=== PATIENT | female | born 1970 | race Caucasian/White ===

== ENCOUNTER 2023-11-17 16:20 | Inpatient (IN) | payer OTHER ==
[2023-11-17] MEDS ORDERED: NA CHLORIDE 0.9% 100 ML ONE (16:53)
[2023-11-17] MEDS ORDERED: CEFEPIME 2 GM VIAL ONE (16:53)
[2023-11-17] MEDS ORDERED: NA CHLORIDE 0.9% 2,000 ML ONE (16:53)
[2023-11-17] MEDS ORDERED: NA CHLORIDE 0.9% 250 ML ONE (16:53)
[2023-11-17 17:03] LABS: Absolute Lymphocytes (CBC) 0.5 K/uL (0.7-4.9); Hematocrit 34.5 % (36.0-45.0); MCV 94.3 fL (80-100); MPV 8.5 fL (7.6-11.3); Platelets 293 thou/uL (152-406); RBC Red Blood Cell Count 3.66 M/uL (3.86-4.86)
[2023-11-17 17:15] LABS: Protime INR 1.21
[2023-11-17 17:25] LABS: Bilirubin Total 0.5 mg/dL (0.2-1.0); Protein, Total 6.6 g/dL (6.4-8.2); Troponin High Sensitivity 3.9 pg/mL (<58.9)
[2023-11-17] MEDS ORDERED: Magnesium Sulfate 2gm IVPB 2 G/50 ML BAG IV ONE (17:46)
[2023-11-17 17:57] LABS: Magnesium 2.2 mg/dL (1.6-2.4)
[2023-11-17] MEDS ORDERED: ALBUMIN HUMAN 25% 100 ML IV ONE (17:57)
--- NOTE | 2023-11-17 18:01 | RAD REPORT ---
EXAM DESCRIPTION: CT - Abdomen Pelvis Wo Contrast - 11/17/2023 5:48 pm CLINICAL HISTORY: Abdominal pain COMPARISON: 2019 TECHNIQUE: Computed axial tomography of the abdomen and pelvis was obtained. IV and oral contrast we re not requested. All CT scans are performed using dose optimization technique as appropriate and may include automated exposure control or mA/KV adjustment according to patient size. FINDINGS: The evaluation of solid organs, vessels and bowel is limited secondary to the lack of con trast administration. The liver, spleen, pancreas, adrenals and kidneys appear grossly normal. Moderate wall thickening involves the entire colon and rectum. Pneumatosis intestinalis is not seen. Small amount of ascites Small right pleural effusion with mild right lower lobe atelectasis Small umbilical hernia IMPRESSION: Moderate pancolitis
--- NOTE | 2023-11-17 18:01 | RAD REPORT ---
EXAM DESCRIPTION: [facility] Single View11/17/2023 4:55 pm CLINICAL HISTORY: Breast cancer. Abdominal pain COMPARISON: none FINDINGS: The patient is in a poor degree of inspiration. Central venous catheter in place. Mild right lower lobe atelectasis. The remainder of the lungs appear clear of acute infiltrate. The heart is normal size
[2023-11-17 18:08] LABS: Blood Morphology Comment NOT SEEN (NOT SEEN); Platelet Estimate ADEQ
[2023-11-17 18:15] LABS: Toxic Granulation 2+
[2023-11-17 18:16] LABS: Dohle Bodies PRESENT
--- NOTE | 2023-11-17 18:32 | EDPHYS ---
Physician Documentation [facility] Name: Kirit Tim Age: 53 yrs Sex: Female : 1970 Arrival Date: 11/17/2023 Time: 16:20 Bed IW9 Private MD: Guillermo Carbajal ED Physician Ky Marino HPI: 11/17 16:49 This 53 yrs old Female presents to ER via Wheelchair with complaints of Urinary Problem.rt 16:49 Patient has a history of breast cancer, finished the last round of chemotherapy about 2 rt weeks ago. Patient did receive what seems to be a Neulasta shot following that. The patient states that she usually bounces back pretty well after the chemotherapy, states that she has had progressive weakness for this episode with associated diarrhea. She is dizziness described as near syncope. She also reports abdominal pain, bloating. Denies other acute complaints at this time, symptoms are moderate severity, no other aggravating or alleviating factors.. 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 - Social history:: Smoking status: Patient denies any tobacco usage or history of. - Family history:: not pertinent. ROS: 16:49 Cardiovascular: Negative for chest pain, palpitations, and edema, Respiratory: Negative rt for shortness of breath, cough, wheezing, and pleuritic chest pain, MS/Extremity: Negative for injury and deformity, Skin: Negative for injury, rash, and discoloration, 16:49 Constitutional: Positive for chills, fatigue, Negative for 16:49 Abdomen/GI: Positive for abdominal pain, diarrhea, 16:49 Neuro: Positive for near syncope, weakness, Exam: 16:49 Chest/axilla: Normal chest wall appearance and motion. Nontender with no deformity. rt No lesions are appreciated. Cardiovascular: Regular rate and rhythm with a normal S1 and S2. No gallops, murmurs, or rubs. Normal PMI, no JVD. No pulse deficits. Respiratory: Lungs have equal breath sounds bilaterally, clear to auscultation and percussion. No rales, rhonchi or wheezes noted. No increased work of breathing, no retractions or nasal flaring. Skin: Warm, dry with normal turgor. Normal color with no rashes, no lesions, and no evidence of cellulitis. MS/ Extremity: Pulses equal, no cyanosis. Neurovascular intact. Full, normal range of motion. Neuro: Awake and alert, GCS 15, oriented to person, place, time, and situation. Cranial nerves II-XII grossly intact. Motor strength 5/5 in all extremities. Sensory grossly intact. Cerebellar exam normal. Normal gait. Psych: Awake, alert, with orientation to person, place and time. Behavior, mood, and affect are within normal limits. 16:49 Constitutional: The patient appears Pale, chronically ill-appearing 16:49 Abdomen/GI: Mild tenderness diffusely, mild distention, no rebound, guarding, 18:46 ECG was reviewed by the Attending Physician. rt Vital Signs: 16:37 BP 72 / 54; Pulse 110; Resp 20 S; Temp 97.5(O); Pulse Ox 100% on R/A; Weight 76.2 kg as6 (R); Height 5 ft. 0 in. (R); Pain 8/10; 17:22 BP 78 / 43; Pulse 94; Pulse Ox 99% on R/A; ap3 17:36 BP 84 / 50; Pulse 100; Pulse Ox 98% on R/A; ap3 17:37 BP 89 / 49; Pulse 100; Pulse Ox 100% on R/A; ap3 18:11 BP 81 / 52; Pulse 95; Resp 23; Pulse Ox 100% on R/A; ap3 18:19 BP 85 / 52; Pulse 91; Pulse Ox 100% on R/A; ap3 18:30 BP 86 / 51; Pulse 97; Resp 16; Pulse Ox 100% on R/A; ap3 18:55 BP 84 / 55; Pulse 97; Pulse Ox 98% on R/A; ap3 18:57 BP 82 / 56; Pulse 96; Pulse Ox 99% on R/A; ap3 19:00 BP 92 / 59; Pulse 97; Pulse Ox 99% on R/A; nw1 19:10 BP 90 / 56; Pulse 91; Pulse Ox 99% on R/A; nw1 19:20 BP 87 / 52; Pulse 90; Pulse Ox 98% on R/A; nw1 19:30 BP 86 / 49; Pulse 89; Pulse Ox 99% on R/A; nw1 19:40 BP 95 / 53; Pulse 89; Pulse Ox 98% on R/A; nw1 19:50 BP 88 / 51; Pulse 93; Resp 20; Pulse Ox 98% on R/A; nw1 20:00 BP 94 / 53; Pulse 93; Pulse Ox 98% on R/A; nw1 20:10 BP 91 / 49; Pulse 93; Pulse Ox 98% ; nw1 20:20 BP 89 / 52; Pulse 92; Pulse Ox 98% on R/A; nw1 20:30 BP 92 / 53; Pulse 95; Pulse Ox 97% on R/A; nw1 20:40 BP 72 / 54 Sitting; Pulse 95; Pulse Ox 97% on R/A; nw1 20:50 BP 89 / 55; Pulse 94; Resp 24; Pulse Ox 98% ; nw1 21:00 BP 100 / 58; Pulse 96; Resp 23 S; Pulse Ox 98% on R/A; nw1 21:10 BP 103 / 54; Pulse 94; Resp 23; Pulse Ox 98% on R/A; nw1 21:20 BP 100 / 53; Pulse 93; Pulse Ox 100% ; nw1 16:37 Body Mass Index 32.81 (76.20 kg, 152.4 cm) as6 16:37 Pain Scale: Adult as6 [place] Coma Score: 17:36 Eye Response: spontaneous(4). Motor Response: obeys commands(6). Verbal Response: ap3 oriented(5). Total: 15. MDM: 16:35 Patient medically screened. rt 18:42 Differential Diagnosis. rt 18:43 Differential Diagnosis Colitis, sepsis, volume depletion, electrolyte disturbance. Data rt reviewed: vital signs, nurses notes, lab test result(s), EKG, radiologic studies. Consideration of Admission/Observation Patient was admitted/placed on observation. Management of patient was discussed with the following: Home Care Associate: Discussed case with nephrology on-call who recommends stopping saline, continue albumin, midodrine, rechecking sodiums every 4 hours, giving boluses for that with a goal sodium to be 115 in the morning.. I considered the following discharge prescriptions or medication management in the emergency department Medications were administered in the Emergency Department. See MAR Patient remains hypotensive, improving with 1 L of saline. Given risk of central pontine myelinolysis, will stop saline administration short of 30 cc/kg as this is more likely to harm the patient the benefit. Patient does seem to be clinically improving.. Independent interpretation of the following test(s) in the Emergency Department X-Ray: My interpretation is No pneumonia seen on interpretation of x-ray images. Care significantly affected by the following chronic conditions: Breast cancer. Counseling: I had a detailed discussion with the patient and/or guardian regarding the historical points, exam findings, and any diagnostic results supporting the discharge/admit diagnosis, lab results, radiology results, the need for further work-up and treatment in the hospital. Response to treatment: the patient's symptoms have mildly improved after treatment. 11/17 16:44 Order name: Blood Culture Adult (2) rt 11/17 16:44 Order name: CBC with Diff; Complete Time: 18:27 rt 11/17 16:44 Order name: CMP; Complete Time: 18:03 rt 11/17 16:44 Order name: Lactate w/ 2H reflex if indic.; Complete Time: 17:31 rt 11/17 16:44 Order name: Protime (+inr); Complete Time: 17:31 rt 11/17 16:44 Order name: Ptt, Activated; Complete Time: 17:31 rt 11/17 16:44 Order name: Urinalysis w/ reflexes rt 11/17 16:44 Order name: Troponin High Sensitivity; Complete Time: 18:03 rt 11/17 16:44 Order name: Lipase; Complete Time: 18:03 rt 11/17 17:55 Order name: Magnesium; Complete Time: 18:03 EDMS 11/17 18:09 Order name: Manual Differential; Complete Time: 18:27 EDMS 11/17 19:16 Order name: Urinalysis w/ reflexes EDMS 11/17 19:16 Order name: CBC with Automated Diff EDMS 11/17 19:16 Order name: CBC with Automated Diff EDMS 11/17 19:16 Order name: Comprehensive Metabolic Panel EDMS 11/17 19:16 Order name: Comprehensive Metabolic Panel EDMS 11/17 19:16 Order name: Magnesium EDMS 11/17 19:16 Order name: Magnesium EDMS 11/17 19:16 Order name: Phosphorus EDMS 11/17 19:16 Order name: Phosphorus EDMS 11/17 16:44 Order name: Chest Single View XRAY; Complete Time: 18:03 rt 11/17 17:32 Order name: Abdomen ; Complete Time: 18:03 EDMS 11/17 16:44 Order name: EKG; Complete Time: 16:45 rt 11/17 16:44 Order name: Cardiac monitoring; Complete Time: 16:46 rt 11/17 16:44 Order name: EKG - Nurse/Tech; Complete Time: 17:21 rt 11/17 16:44 Order name: IV Saline Lock - Large Bore; Complete Time: 16:46 rt 11/17 16:44 Order name: Labs collected and sent; Complete Time: 16:46 rt 11/17 16:44 Order name: O2 Per Protocol; Complete Time: 16:46 rt 11/17 16:44 Order name: O2 Sat Monitoring; Complete Time: 16:46 rt 11/17 16:44 Order name: Vital Signs; Complete Time: 16:46 rt EC:46 Rate is 96 beats/min. Rhythm is regular, Normal Sinus Rhythm with No ectopy. QRS [place] rt is Normal. MO interval is normal. QRS interval is normal. QT interval is prolonged at 540 msec. No Q waves. Clinical impression: NSR w/ Non-specific ST/T Changes. Administered Medications: 17:56 Discontinued: ns 0.9% (30 ml/kg) 30 ml/kg IV at bolus once; Sepsis Protocol ap3 17:06 Drug: NS 0.9% IV (30 ml/kg) 30 ml/kg IV at bolus once; Sepsis Protocol Route: IV; Rate: ap3 bolus; Site: left antecubital; 17:06 Drug: Cefepime IVPB 2 grams IVPB at 200 ml/hr once over 30 mins; (mix in NS 100 mL) ap3 Route: IVPB; Rate: 200 ml/hr; Infused Over: 30 mins; Site: left antecubital; 18:10 Follow up: IV Status: Completed infusion; IV Intake: 100ml ap3 17:55 Drug: Magnesium Sulfate IVPB 2 grams IVPB once over 2 hrs Route: IVPB; Infused Over: 2 ap3 hrs; Site: left antecubital; 18:10 Drug: Albumin IVPB 25 grams 100 ml IVPB once; (Note: Albumin 25% concentration) Volume: ap3 100 ml; Route: IVPB; Site: left antecubital; 18:26 Follow up: IV Status: Completed infusion; IV Intake: 100ml ap3 19:10 Drug: Potassium Chloride IV 40 mEq IV at calculated rate once; administer over 4 hours nw1 Route: IV; Rate: calculated rate; Site: left antecubital; Disposition Summary: 11/17/23 18:32 Hospitalization Ordered Notes: Hospitalization Status: Inpatient Admission rt Provider: Patricia Jauregui rt Location: Intensive Care Unit rt Condition: Critical rt Problem: new rt Symptoms: have improved rt Bed/Room Type: Standard rt Room Assignment: 3-(11/17/23 21:16) Diagnosis - Pancolitis rt - Hyponatremia rt - Acute renal failure rt - Hypokalemia rt - Hypotension rt Discharge Instructions: - Discharge Summary Sheet ap3 Forms: - SBAR form ap3 - Medication Reconciliation Form rt - Leadership Thank You Letter rt Critical care time excluding procedures: 18:43 Critical care time: Bedside Care: 40 minutes, Consultation: 10 minutes. Total time: 50 rt minutes Signatures: Dispatcher [employer] EDSunshine Fontana RN RN kl Prokisch, Amanda, RN RN ap3 Charli Oliver RN RN as6 Ky Marino MD MD rt Jess Mckeon RN RN nw1 Corrections: (The following items were deleted from the chart) 17:26 16:44 Accucheck ordered. rt ap3 17:32 16:45 Abdomen Pelvis W Con+CT.RAD.BRZ ordered. EDMS EDMS 18:00 17:43 MAGNESIUM+C.LAB.BRZ ordered. EDMS EDMS 19:54 18:56 Chatterjee ordered. rt nw1 21:16 18:32 rt kl
--- NOTE | 2023-11-17 18:32 | ER ---
Nurse's Notes [facility] Name: Kirit Tim Age: 53 yrs Sex: Female : 1970 Arrival Date: 11/17/2023 Time: 16:20 Bed IW9 Private MD: Guillermo Carbajal Diagnosis: Pancolitis;Hyponatremia;Acute renal failure;Hypokalemia;Hypotension Presentation: 11/17 16:37 Chief complaint: Patient states: pt had her last chemo treatment 11/08 and has been as6 feeling ill ever since. pt reports diarrhea, decreased urine output, abdominal pain and bloating. Coronavirus screen: At this time, the client does not indicate any symptoms associated with coronavirus-19. Ebola Screen: No symptoms or risks identified at this time. Initial Sepsis Screen: Does the patient meet any 2 criteria? Systolic BP < 90 mmHg. HR > 90 bpm. Yes Does the patient have a suspected source of infection? Yes: Acute abdominal pain If YES to both, name of provider notified: Ky Marino MD. Risk Assessment: Do you want to hurt yourself or someone else? Patient reports no desire to harm self or others. Onset of symptoms was November 08, 2023. 16:37 Method Of Arrival: Wheelchair as6 16:37 Acuity: STACY 2 as6 Triage Assessment: 16:45 General: Appears uncomfortable, Behavior is calm, cooperative, appropriate for age. ap3 Pain: Complains of pain in abdomen. Neuro: Level of Consciousness is awake, alert, obeys commands, Oriented to person, place, time, situation, Appropriate for age. Cardiovascular: Patient's skin is warm and dry. Respiratory: Airway is patent Respiratory effort is even, unlabored, Respiratory pattern is regular, symmetrical. GI: Reports diarrhea. : Reports decreased urine. 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 - Social history:: Smoking status: Patient denies any tobacco usage or history of. - Family history:: not pertinent. Screenin:44 [facility] ED Fall Risk Assessment (Adult) History of falling in the last 3 months, ap3 including since admission No falls in past 3 months (0 pts). Abuse screen: Denies threats or abuse. Nutritional screening: No deficits noted. Tuberculosis screening: No symptoms or risk factors identified. Assessment: 18:00 Reassessment: Patient and/or family updated on plan of care and expected duration. Pain ap3 level reassessed. Patient is alert, oriented x 3, equal unlabored respirations, skin warm/dry/pink. 18:25 Reassessment: 10mg Midodrine HCL PO given via [employer] orders. ap3 18:31 Reassessment: Patient and/or family updated on plan of care and expected duration. Pain ap3 level reassessed. Patient is alert, oriented x 3, equal unlabored respirations, skin warm/dry/pink. 19:00 Reassessment: Report received from GALE Beckford. . Pt is an ICU patient. Introductions nw1 made. Hospitalist at bedside at this time. Will return to reevaluate. 19:39 Reassessment: Patient requested medication for gas relief and refused christensen catheter as nw1 ordered by ED physician at this time. Notified hospitalist of these requests and per hospitalist, urine is to be collected at random for urinalysis per order and an order for gas relief to be made. 19:50 Reassessment: Notified KAYCEE Garcia RN of patient's acuity and ICU status. nw1 20:44 Reassessment: Pt continues to state gas-like pain. Sat upright to assist with relief of nw1 gas, noted burping once sat at 40 degree angle. Pt to sit upright for the time being unless patient becomes more hypotensive. 22:00 Reassessment: Pt transferred to ICU bed 3. GALE Wallace at bedside at time of transfer. Pt nw1 in bed and tolerated transfer from stretcher to bed. VSS at time of transfer. Vital Signs: 16:37 BP 72 / 54; Pulse 110; Resp 20 S; Temp 97.5(O); Pulse Ox 100% on R/A; Weight 76.2 kg as6 (R); Height 5 ft. 0 in. (R); Pain 8/10; 17:22 BP 78 / 43; Pulse 94; Pulse Ox 99% on R/A; ap3 17:36 BP 84 / 50; Pulse 100; Pulse Ox 98% on R/A; ap3 17:37 BP 89 / 49; Pulse 100; Pulse Ox 100% on R/A; ap3 18:11 BP 81 / 52; Pulse 95; Resp 23; Pulse Ox 100% on R/A; ap3 18:19 BP 85 / 52; Pulse 91; Pulse Ox 100% on R/A; ap3 18:30 BP 86 / 51; Pulse 97; Resp 16; Pulse Ox 100% on R/A; ap3 18:55 BP 84 / 55; Pulse 97; Pulse Ox 98% on R/A; ap3 18:57 BP 82 / 56; Pulse 96; Pulse Ox 99% on R/A; ap3 19:00 BP 92 / 59; Pulse 97; Pulse Ox 99% on R/A; nw1 19:10 BP 90 / 56; Pulse 91; Pulse Ox 99% on R/A; nw1 19:20 BP 87 / 52; Pulse 90; Pulse Ox 98% on R/A; nw1 19:30 BP 86 / 49; Pulse 89; Pulse Ox 99% on R/A; nw1 19:40 BP 95 / 53; Pulse 89; Pulse Ox 98% on R/A; nw1 19:50 BP 88 / 51; Pulse 93; Resp 20; Pulse Ox 98% on R/A; nw1 20:00 BP 94 / 53; Pulse 93; Pulse Ox 98% on R/A; nw1 20:10 BP 91 / 49; Pulse 93; Pulse Ox 98% ; nw1 20:20 BP 89 / 52; Pulse 92; Pulse Ox 98% on R/A; nw1 20:30 BP 92 / 53; Pulse 95; Pulse Ox 97% on R/A; nw1 20:40 BP 72 / 54 Sitting; Pulse 95; Pulse Ox 97% on R/A; nw1 20:50 BP 89 / 55; Pulse 94; Resp 24; Pulse Ox 98% ; nw1 21:00 BP 100 / 58; Pulse 96; Resp 23 S; Pulse Ox 98% on R/A; nw1 21:10 BP 103 / 54; Pulse 94; Resp 23; Pulse Ox 98% on R/A; nw1 21:20 BP 100 / 53; Pulse 93; Pulse Ox 100% ; nw1 16:37 Body Mass Index 32.81 (76.20 kg, 152.4 cm) as6 16:37 Pain Scale: Adult as6 [place] Coma Score: 17:36 Eye Response: spontaneous(4). Motor Response: obeys commands(6). Verbal Response: ap3 oriented(5). Total: 15. ED Course: 11:46 Initial lab(s) drawn, by me, sent to lab. First set of blood cultures drawn by me. ap3 16:23 Patient arrived in ED. mr 16:23 Guillermo Carbajal is Private Physician. mr 16:25 Ky Marino MD is Attending Physician. rt 16:37 Arm band placed on. as6 16:40 Triage completed. as6 16:44 Analy Reed, GALE is Primary Nurse. ap3 16:44 Patient has correct armband on for positive identification. Bed in low position. Call ap3 light in reach. Side rails up X 1. Adult w/ patient. 16:44 Inserted saline lock: 22 gauge in left antecubital area, using aseptic technique. Blood ap3 collected. 16:57 Chest Single View XRAY In Process Unspecified. EDMS 17:00 Second set of blood cultures drawn by me. ap3 17:06 Provided Education on: medications prior to administration. ap3 17:21 EKG done, by ED staff, reviewed by Ky Marino MD. ap3 17:50 Abdomen In Process Unspecified. EDMS 18:31 Patricia Jauregui MD is Hospitalizing Provider. rt 21:34 Patient admitted, IV remains in place. nw1 21:34 No provider procedures requiring assistance completed. nw1 Administered Medications: 17:56 Discontinued: ns 0.9% (30 ml/kg) 30 ml/kg IV at bolus once; Sepsis Protocol ap3 17:06 Drug: NS 0.9% IV (30 ml/kg) 30 ml/kg IV at bolus once; Sepsis Protocol Route: IV; Rate: ap3 bolus; Site: left antecubital; 17:06 Drug: Cefepime IVPB 2 grams IVPB at 200 ml/hr once over 30 mins; (mix in NS 100 mL) ap3 Route: IVPB; Rate: 200 ml/hr; Infused Over: 30 mins; Site: left antecubital; 18:10 Follow up: IV Status: Completed infusion; IV Intake: 100ml ap3 17:55 Drug: Magnesium Sulfate IVPB 2 grams IVPB once over 2 hrs Route: IVPB; Infused Over: 2 ap3 hrs; Site: left antecubital; 18:10 Drug: Albumin IVPB 25 grams 100 ml IVPB once; (Note: Albumin 25% concentration) Volume: ap3 100 ml; Route: IVPB; Site: left antecubital; 18:26 Follow up: IV Status: Completed infusion; IV Intake: 100ml ap3 19:10 Drug: Potassium Chloride IV 40 mEq IV at calculated rate once; administer over 4 hours nw1 Route: IV; Rate: calculated rate; Site: left antecubital; Medication: 16:44 VIS not applicable for this client. ap3 Intake: 18:10 IV: 100ml; Total: 100ml. ap3 18:26 IV: 100ml; Total: 200ml. ap3 Outcome: 18:32 Decision to Hospitalize by Provider. rt 21:34 Admitted to ICU accompanied by nurse, room 3, with chart, Report called to ICU nurse nw1 bed 3. 21:34 Condition: stable 21:34 Instructed on the need for admit, 22:11 Patient left the ED. nw1 Signatures: Dispatcher [employer] EDAK ChavarriaChery manley, Reg Reg mr Analy Reed, RN RN ap3 Charli Oliver RN RN as6 Ky Marino MD MD rt Jess Mckeon RN RN nw1
[2023-11-17] MEDS ORDERED: ACETAMINOPHEN 325 MG TABLET PO PRN (19:12)
[2023-11-17] MEDS ORDERED: ONDANSETRON 4 MG/2 ML VIAL IV PRN (19:12)
[2023-11-17] MEDS ORDERED: KCL 20 MEQ/100 mL IVPB 200 ML IV ONE (19:14)
[2023-11-17] MEDS ORDERED: SIMETHICONE 125 MG TAB PO PRN (19:36)
--- NOTE | 2023-11-17 19:45 | P.HP ---
Certification for Inpatient With expected LOS: >2 Midnights Practitioner: I am a practitioner with admitting privileges, knowledge of patient current condition, hospital course, and medical plan of care. Services: Services provided to patient in accordance with Admission requirements found in Title 42 Section 412.3 of the Code of Federal Regulations Patient History Date of Service: 11/17/23 Reason for admission: Acute renal failure History of Present Illness: 53-year-old female with breast cancer on chemotherapy, completed her fourth cycle on 11/07/2023. She presented about 6 weeks of watery diarrhea. Associated symptoms include abdominal bloating, nausea, anorexia and decreased oral intake. Her bloating improves with burping. Her intake consist mostly of fluids and Jell-O. She denies any fever, vomiting, dysuria, hematuria rash, chest pain, shortness of breath and abdominal pain. She started Imodium yesterday and has diarrhea has improved however she remains very weak and with nausea and decreased urine output. Patient also takes lisinopril/hydrochlorothiazide daily, last dose today. She was given Neulasta shots on 11/09. She does not smoke or drink. In terms of her breast cancer, she had lumpectomy on May 2023 a month after her breast cancer diagnosis and patient is scheduled for follow-up PET/CT next week and then subsequent lumpectomy on December 07. When she arrived to the ED initial BP was 72/54, HR 110. Her labs showed Na 109, K+ 3, chloride 69, bicarb 17, anion gap 26, BUN/Cr 63/8.[address] abdomen and pelvis revealed moderate wall thickening of the entire colon and rectum consistent with moderate pancolitis. Patient initially started normal saline bolus but later switched to 25 g albumin. Also received cefepime, 2g mg, 20 meq KCL and 10 mg of midodrine. Allergies No Known Allergies Allergy (Unverified 11/17/23 19:29) Review of Systems 10-point ROS is otherwise unremarkable (As per HPI) Physical Examination - Vital Signs Temperature: 97.5 F Blood Pressure: 82/56 Pulse: 97 Respirations: 23 Pulse Ox (%): 100 - Physical Exam General: Alert, In no apparent distress, Oriented x3 HEENT: Atraumatic, Normocephalic, PERRLA, Mucous membr. moist/pink Neck: Supple, No Thyromegaly Respiratory: Clear to auscultation bilaterally, Normal air movement Cardiovascular: No edema, Regular rate/rhythm, Normal S1 S2 Gastrointestinal: Normal bowel sounds, Soft and benign, No ascites, No tenderness, No masses Musculoskeletal: No swelling, No erythema, No tenderness Integumentary: No rashes Neurological: Normal gait, Normal speech, Normal strength at 5/5 x4 extr, Normal tone, Sensation intact - Studies Laboratory Data (last 24 hrs) 11/17/23 11/17/23 11/17/23 17:42 16:47 16:47 WBC Hgb Hct Plt Count PT 13.2 H INR 1.21 APTT 26.1 Sodium 109 L* Potassium 3.0 L BUN 63 H Creatinine 8.62 H Glucose 108 H Magnesium Cancelled 2.2 Total Bilirubin 0.5 AST 43 H ALT 48 Alkaline Phosphatase 158 H Lipase 13 11/17/23 16:47 WBC 48.30 H Hgb 12.0 Hct 34.5 L Plt Count 293 PT INR APTT Sodium Potassium BUN Creatinine Glucose Magnesium Total Bilirubin AST ALT Alkaline Phosphatase Lipase Assessment and Plan - Plan Acute renal failure ATN from volume loss/decreased intake Status post IV albumin Holding NS fluid to avoid overcorrection of hyponatremia Antiemetics Monitor urine output Nephrology consulted Hypotension S/p IV albumin Continue midodrine Monitor BP in the ICU Start Levophed if patient remains hypotensive Pancolitis Continue cefepime Diarrhea has resolved with Imodium Follow-up blood cultures Profound hyponatremia Sodium 109 on admission Multifactorial; hypovolemia in the setting of HCTZ use Monitor BMP, sodium correction for 10 mEq in 24 hours Patient already received a bolus of IV fluid NS Follow-up urine osmolality and electrolytes Hold HCTZ Electrolyte abnormalities IV KCl 20 mEq and 2 mg mag given Monitor labs and replete as appropriate Breast cancer on chemotherapy Immunocompromised S/p Neulasta, WBC 48 Follow-up with oncology outpatient - Advance Directives Does patient have a Living Will: No Does patient have a Durable POA for Healthcare: No
[2023-11-17] MEDS ORDERED: SIMETHICONE 80 MG CHEWABLE TAB ONE (19:48)
[2023-11-17] MEDS: MIDODRINE HCL 5 MG TABLET PO SCH (22:18)
[2023-11-17] MEDS: HEPARIN 5000 UNIT/ML 1 ML VIAL SQ SCH (22:18)
[2023-11-18 00:02] LABS: Albumin 2.1 g/dL (3.4-5.0); Bilirubin Total 0.5 mg/dL (0.2-1.0); Potassium 3.6 mEq/L (3.5-5.1); Protein, Total 5.9 g/dL (6.4-8.2); Uric Acid 11.6 mg/dL (2.6-6.0)
[2023-11-18] MEDS ORDERED: NA CHLORIDE 3% 500 ML IV SCH ×2 (01:15→14:00)
[2023-11-18] MEDS: SODIUM BICARB 50 MEQ/50ML VIAL ONE ×2 (01:43→01:55)
[2023-11-18] MEDS ORDERED: NACHLORIDE 0.45% 0 ML IV ONE (01:45)
[2023-11-18] MEDS ORDERED: NOREPINEPHRINE 4 MG in D5W 250 ML IV SCH (02:00)
[2023-11-18] MEDS ORDERED: NACHLORIDE 0.45% 1,000 ML with NA BICARB 8.4% 100 MEQ IV SCH ×4 (02:00→03:00)
[2023-11-18 05:04] LABS: Absolute Lymphocytes (CBC) 0.4 K/uL (0.7-4.9); Hematocrit 28.2 % (36.0-45.0); Lymphocytes % 0.7 % (15.3-44.8); MCV 94.5 fL (80-100); MPV 8.3 fL (7.6-11.3); Platelets 251 thou/uL (152-406); RBC Red Blood Cell Count 2.99 M/uL (3.86-4.86)
[2023-11-18] MEDS ORDERED: KCL 20 MEQ/100 mL IVPB 20 MEQ/100 ML BAG IV SCH (06:00)
[2023-11-18 06:06] LABS: Albumin 1.8 g/dL (3.4-5.0); Bilirubin Total 0.5 mg/dL (0.2-1.0); Magnesium 2.6 mg/dL (1.6-2.4); Phosphorus 7.9 mg/dL (2.5-4.9); Potassium 3.7 mEq/L (3.5-5.1); Protein, Total 5.5 g/dL (6.4-8.2); Uric Acid 11.1 mg/dL (2.6-6.0)
[2023-11-18 06:52] LABS: Blood Morphology Comment NOT SEEN (NOT SEEN); Platelet Estimate ADEQ; Toxic Granulation 3+
[2023-11-18] MEDS: HEPARIN 5000 UNIT/ML 1 ML VIAL SQ SCH ×2 (08:44→21:15)
[2023-11-18] MEDS: MIDODRINE HCL 5 MG TABLET PO SCH ×3 (08:44→21:16)
[2023-11-18] MEDS ORDERED: INFLUENZA VACCINE (for 6+ mo) 0.5 ML DOSE IMVAC ONE (09:00)
[2023-11-18] MEDS ORDERED: CEFEPIME 0.5 GM in NA CHLORIDE 0.9% 50 ML IV SCH (09:00)
[2023-11-18] MEDS ORDERED: NACHLORIDE 0.45% 1,000 ML IV ONE (10:24)
[2023-11-18] MEDS ORDERED: SODIUM CHLORIDE 1 GM TAB PO ONE ×2 (11:00→14:00)
[2023-11-18] MEDS ORDERED: ALBUMIN HUMAN 25% 200 ML IV ONE (12:00)
[2023-11-18 12:47] LABS: Potassium 3.7 mEq/L (3.5-5.1)
[2023-11-18] MEDS: METRONIDAZOLE 500mg IVPB 500 MG/100 ML BAG IV SCH ×2 (12:56→21:15)
[2023-11-18] MEDS ORDERED: NACHLORIDE 0.45% 1,000 ML with NA BICARB 8.4% 50 MEQ IV SCH ×2 (13:00)
[2023-11-18] MEDS ORDERED: HYDROCORTISONE SUC 100 MG INJ IV ONE (13:20)
[2023-11-18] MEDS ORDERED: FENTANYL CITR 100 MCG/2 ML IV ONE (13:20)
[2023-11-18] MEDS ORDERED: HYDROCORTISONE SUC 100 MG INJ ONE (13:22)
[2023-11-18] MEDS ORDERED: FENTANYL CITR 100 MCG/2 ML ONE (13:23)
[2023-11-18] MEDS ORDERED: VANCOMYCIN HCL 125 MG CAPSULE PO ONE (14:00)
[2023-11-18] MEDS ORDERED: VANCOMYCIN 2 GM in NA CHLORIDE 0.9% 500 ML IVPB ONE (14:00)
[2023-11-18] MEDS ORDERED: VANCOMYCIN 2 GM in NA CHLORIDE 0.9% 250 ML IVPB ONE (14:00)
[2023-11-18] MEDS ORDERED: VANCOMYCIN 1 GM in NA CHLORIDE 0.9% 250 ML IVPB SCH (14:00)
--- NOTE | 2023-11-18 15:00 | RAD REPORT ---
EXAM DESCRIPTION: RAD - Abdomen 1 View (KUB) - 11/18/2023 2:51 pm CLINICAL HISTORY: pancolitis COMPARISON: Abdomen Pelvis Wo Contrast dated 11/17/2023 FINDINGS: Increased small bowel dilatation compared with 11/17/2023. There is a loop of small bowel centrally measuring 3.5 cm. Colonic wall thickening is again identified. There is a paucity of distal colonic gas. No acute osseous abnormality.Visualized lungs are unremarkable.No abnormal calcificatio ns. IMPRESSION: Increasing small bowel dilatation is centrally could be secondary to an ileus given the patient's known colitis.
[2023-11-18] MEDS ORDERED: ALBUTEROL 2.5 MG/3 ML NEB SOL NEB ONE (15:58)
[2023-11-18] MEDS ORDERED: IPRATROPIUM BROM 0.5MG/2.5ML NEB ONE (15:58)
[2023-11-18] MEDS ORDERED: IPRATROPIUM BROM 0.5MG/2.5ML ONE (16:12)
[2023-11-18] MEDS ORDERED: ALBUTEROL 2.5 MG/3 ML NEB SOL ONE (16:12)
[2023-11-18] MEDS ORDERED: PHENOL 1.4% ORAL SPRAY 180ML MM PRN (16:28)
[2023-11-18] MEDS ORDERED: PHENOL 1.4% ORAL SPRAY 180ML ONE (16:30)
[2023-11-18] MEDS: VANCOMYCIN HCL 125 MG CAPSULE PO SCH ×2 (17:00→21:00)
--- NOTE | 2023-11-18 17:11 | RAD REPORT ---
EXAM DESCRIPTION: RAD - Abdomen 1 View (KUB) - 11/18/2023 5:05 pm CLINICAL HISTORY: NGT placement COMPARISON: Abdomen 1 View (KUB) dated 11/18/2023 FINDINGS: NG tube tip overlies the stomach consider to position. Similar small bowel distension coul d IMPRESSION: NG tube tip overlies the stomach in satisfactory position.
[2023-11-18 18:29] LABS: Potassium 3.8 mEq/L (3.5-5.1)
[2023-11-18] MEDS: IPRATROPIUM BROM 0.5MG/2.5ML NEB SCH (20:22)
[2023-11-18] MEDS: ALBUTEROL 2.5 MG/3 ML NEB SOL NEB SCH (20:22)
--- NOTE | 2023-11-19 06:16 | P.PN ---
Date of Service: 11/18/23 Subjective Patient is clinically doing better after NG tube was placed. Patient is a 53-year-old female with a history of breast cancer status post chemo therapy. She was admitted to the hospital with persistent diarrhea, hyponatremia, and acute renal failure. Patient had pancolitis and there is concerning for C. difficile. Stool studies were ordered. Patient's renal function and hyponatremia have been very slow to improve. Minimal urine output at this time. Patient had a GI consultation and KUB was ordered. KUB showed severe gastric distention. Patient was slightly hypoxic but NG tube was placed and patient felt much better. However, patient has severe leukocytosis. Uric acid was minimally elevated. Physical Examination - Vital Signs Reviewed - Physical Exam General: Alert, In no apparent distress, Oriented x3 HEENT: Alopecia Respiratory: Clear to auscultation bilaterally, Normal air movement Cardiovascular: No edema, Regular rate/rhythm, Normal S1 S2 Gastrointestinal: Normal bowel sounds, Soft and benign, No ascites, No tenderness, No masses Musculoskeletal: No swelling, No erythema, No tenderness Integumentary: No rashes Neurological: No focal deficits Assessment and Plan - Plan Acute renal failure -Continue with aggressive IV hydration with 3% saline. Will also need to supplement patient's volume status with additional hydration. Appreciate nephrology consultation. Hypotension Currently being managed conservatively; continue with aggressive IV hydration. Continue midodrine and albumin. Added Levophed as needed. Pancolitis Concerning for C. difficile. Stool studies were ordered. However, they have not been collected at this time. Continue with vancomycin orally and patient was given IV vancomycin dose. Renal function is elevated so at this time we will not give an additional dose unless trough is checked. Profound hyponatremia Very slow to correct at this time. Started on 3% saline. Chatterjee cath accessed. Electrolyte abnormalities Continue monitoring closely. Breast cancer on chemotherapy Immunocompromised Patient was given Neulasta. White blood cell count significantly elevated. Unlikely to be tumor lysis syndrome. Will continue monitoring white blood cell count and monitor hydration status. - Advance Directives Does patient have a Living Will: No Does patient have a Durable POA for Healthcare: No
[2023-11-19 06:18] LABS: Absolute Lymphocytes (CBC) 0.4 K/uL (0.7-4.9); Hematocrit 24.4 % (36.0-45.0); Lymphocytes % 0.7 % (15.3-44.8); MCV 93.9 fL (80-100); MPV 7.8 fL (7.6-11.3); Platelets 235 thou/uL (152-406); RBC Red Blood Cell Count 2.59 M/uL (3.86-4.86)
[2023-11-19] MEDS ORDERED: SODIUM CHLORIDE 0.9% 10ML INJ IV PRN (06:18)
[2023-11-19] MEDS ORDERED: NA CHLORIDE 0.9% 500 ML IV ONE (06:23)
[2023-11-19] MEDS: NA CHLORIDE 3% 500 ML IV SCH ×2 (06:30→15:51)
[2023-11-19 06:35] LABS: Albumin 2.3 g/dL (3.4-5.0); Potassium 3.7 mEq/L (3.5-5.1); Protein, Total 5.6 g/dL (6.4-8.2)
[2023-11-19] MEDS: IPRATROPIUM BROM 0.5MG/2.5ML NEB SCH ×4 (07:00→20:25)
[2023-11-19 07:01] LABS: Blood Morphology Comment NOT SEEN (NOT SEEN); Dohle Bodies PRESENT; Platelet Estimate ADEQ; Toxic Granulation 1+; White Blood Cell Scan OK (OK)
[2023-11-19] MEDS ORDERED: ALBUTEROL 2.5 MG/3 ML NEB SOL ONE ×2 (08:09→14:06)
[2023-11-19] MEDS ORDERED: IPRATROPIUM BROM 0.5MG/2.5ML ONE ×2 (08:09→14:06)
[2023-11-19] MEDS: ALBUTEROL 2.5 MG/3 ML NEB SOL NEB SCH ×4 (08:12→20:25)
[2023-11-19] MEDS: PANTOPRAZOLE 40 MG INJ IVP SCH ×3 (09:00→21:25)
[2023-11-19] MEDS: METRONIDAZOLE 500mg IVPB 500 MG/100 ML BAG IV SCH ×2 (09:00→18:52)
[2023-11-19] MEDS: HEPARIN 5000 UNIT/ML 1 ML VIAL SQ SCH ×2 (09:23→21:24)
[2023-11-19] MEDS: VANCOMYCIN HCL 125 MG CAPSULE PO SCH ×4 (09:34→21:24)
[2023-11-19] MEDS: MIDODRINE HCL 5 MG TABLET PO SCH ×3 (09:35→21:00)
--- NOTE | 2023-11-19 09:38 | RAD REPORT ---
EXAM DESCRIPTION: [facility]itez Single View11/19/2023 9:18 am CLINICAL HISTORY: Fluid overload COMPARISON: November 17, 2023 FINDINGS: Patient is in a poor degree of inspiration. The lungs appear grossly clear. Heart is borderline enlarged. Central venous line in place the Nasogastric tube is considerably coiled. The tip lies within the gastric fundus
--- NOTE | 2023-11-19 09:38 | RAD REPORT ---
EXAM DESCRIPTION: RAD - Abdomen 1 View (KUB) - 11/19/2023 9:18 am CLINICAL HISTORY: Device placement nasogastric tube placement FINDINGS: Nasogastric tube is considerably coiled. The tip lies within the gastric fundus
--- NOTE | 2023-11-19 11:45 | CON ---
Date of Consultation: 11/18/2023 Chief Complaint: Acute kidney injury with hyponatremia. History Of Present Illness: The patient is a 53-year-old with history of breast cancer, on chemotherapy. She received 4 cycles of chemotherapy on October 28, 2023. She presents to the ER because she was having watery diarrhea for at least several-week duration and she was complaining of abdominal bloating, anorexia, and decreased oral intake. The patient was complaining of pain. She denied fever, vomiting, dysuria, hematuria, skin rashes, chest pain, shortness of breath. The patient had p.o. intake mostly . Diarrhea subsided, although she was complaining of some abdominal distention and decided to come to the hospital. The patient has history of breast cancer. She underwent lumpectomy in May 2003. She has been followed by an oncologist. She subsequently had lumpectomy done on December 06, 2022. On arrival to the hospital, the patient is hypotensive, blood pressure 72/54, heart rate is 110. Lab work showed sodium of 109, potassium 3, chloride 69, bicarbonate 17, anion gap is 6, BUN and creatinine was 63 and . WBC 28,000. CT of the abdomen and pelvis showed moderate wall thickening of the entire colon and rectum consistent with moderate pancolitis. The patient is admitted to ICU. She was initially started on normal saline bolus for hypotension. She received IV albumin and potassium . She is started on 3% sodium chloride for hyponatremia. denies headache, vision changes. Denies . She had diarrhea and diarrhea already . Review of Systems: Eyes: Denies having vision changes. Ears, Nose, Mouth, and Throat: Denies sore throat, earache. Respiratory: Denies PND, orthopnea. Cardiovascular: Denies chest pain, palpitation, syncope. She had diarrhea subsided despite vomiting. : Denies dysuria, hematuria. All other systems reviewed and all are negative. Physical Examination: General: The patient is awake, alert, follows commands. Eyes: Anicteric sclerae. EOMI. Ears, Nose, Mouth, and Throat: Oral mucosa moist. No pallor. Neck: Supple. No bruits. Lungs: Clear to auscultation bilaterally. Heart: S1, S2. Abdomen: Soft, benign. Extremities: Edema in both ankles. Laboratory Data: WBC , hematocrit 34, platelet count 293. PT 15.2, INR 1.21, PTT 26.1. Sodium , magnesium 2.0. AST 42, ALT 48, lipase 13. Impression And Plan: 1. The patient has acute kidney injury, . She presented to the hospital because of abdominal pain and , received normal saline for volume resuscitation. . The patient is on antiemetics for nausea. Urine output has not improved and sodium level has not improved significantly. . She has severe hyponatremia. It appears chronic. The patient is asymptomatic. The patient has fewer urine changes plan is to continue monitor electrolytes and 3% of sodium chloride for hyponatremia. The patient received metabolic acidosis, which appears to be secondary to acute kidney injury. Renal failure is clinical status of severe fluid loss and nonsteroidal anti-inflammatory medication. Plan is to continue gentle hydration and treatment for hyponatremia. I discussed with the patient start hemodialysis. Currently, the patient is asymptomatic. She does not have uremic symptoms and metabolic acidosis is controlled. The patient will continue potassium replacement for hypokalemia. EB/MODL Voice ID: [id number] Report ID: [id number] ANGELES
--- NOTE | 2023-11-19 12:57 | P.PN ---
Subjective Date of Service: 11/19/23 Chief Complaint: Acute renal failure Pt is resting comfortably in the ICU bed. Na is 113. She denies any chest pain but reports SOB. Pt is using 1.5L BNC. She is getting 3% NS. Nephrology is following. No other complaints. Review of Systems Unremarkable General: Unremarkable Eyes: Unremarkable ENT: Unremarkable Respiratory: Shortness of Breath Cardiovascular: Unremarkable Gastrointestinal: Unremarkable Genitourinary: Unremarkable Musculoskeletal: Unremarkable Integumentary: Unremarkable Neurological: Unremarkable Lymphatics: Unremarkable Physical Examination - Vital Signs Temperature: 97.0 F Blood Pressure: 102/58 Pulse: 105 Respirations: 20 Pulse Ox (%): 98 - Physical Exam General: Alert, In no apparent distress, Oriented x3, Obese HEENT: Atraumatic, Normocephalic Neck: Supple, 2+ carotid pulse no bruit Respiratory: Clear to auscultation bilaterally, Normal air movement Cardiovascular: No edema, Normal pulses, Regular rate/rhythm, Normal S1 S2 Gastrointestinal: Normal bowel sounds, Soft and benign, Non-distended Musculoskeletal: No clubbing, No swelling Integumentary: No rashes, No breakdown Neurological: Normal speech, Normal strength at 5/5 x4 extr, Sensation intact, Cranial nerves 3-12 intact Lymphatics: No axilla or inguinal lymphadenopathy Assessment And Plan - Plan Acute renal failure: Cr is 6.74. Will continue IVF, avoid nephrotoxins and monitor renal function. Nephrology is following. Hyponatremia: Na is 113 <- 111. Will continue 3% NS till 1pm and recheck the Na level. Hypotension: Will continue IVF, midodrine and albumin. BP is 102/88. Maintain MAP > 65. Low threshold to start levophed. Pancolitis: per imaging study. It is concerning for C diff. No diarrhea since yesterday. Will continue po vanc and flagyl 500mg iv TID. Electrolyte abnormalities: Will monitor and replete electrolytes. Hypocalcemia: Calcium is 7.1. Will check vitamin D, ionized calcium and mag. Hx of breast cancer: Pt recently completed her chemotherapy ( Neulasta). She is immunocompromised. Will monitor WBC. Leukocytosis: Unknown etiology. Will r/o C diff. WBC is 51 <- 56 <- 48. Gastric distention: Status post NG tube placement; GI consulted. Monitor for gastric outlet obstruction. Continue with PPI. DVT ppx: lovenox Dispo: Pending hospital course
[2023-11-19 14:59] LABS: Albumin 2.2 g/dL (3.4-5.0); Bilirubin Total 1.1 mg/dL (0.2-1.0); Potassium 3.9 mEq/L (3.5-5.1); Protein, Total 5.4 g/dL (6.4-8.2)
[2023-11-19] MEDS ORDERED: FENTANYL CITR 100 MCG/2 ML ONE (15:30)
[2023-11-19] MEDS: FENTANYL CITR 100 MCG/2 ML IV PRN (15:33)
[2023-11-19] MEDS ORDERED: NOREPINEPHRINE BITARTRATE/D5W 4 MG/250 ML BAG IV ONE (15:40)
[2023-11-19] MEDS: NOREPINEPHRINE BITARTRATE/D5W 4 MG/250 ML BAG IV SCH ×2 (15:52→21:40)
--- NOTE | 2023-11-19 20:27 | RAD REPORT ---
EXAM DESCRIPTION: US - Abdomen Exam Complete - 11/19/2023 3:43 pm CLINICAL HISTORY: pancolitis COMPARISON: Abdomen Pelvis Wo Contrast dated 11/17/2023 TECHNIQUE: Sonographic grayscale and color flow images of the abdomen were obtained. FINDINGS: Evaluation of the midline structures is limited due to over shadowing bowel gas. The visua lized aspects of the aorta are of normal caliber. The liver is normal in size with smooth contour. Normal echogenicity and texture. No focal lesions. No intrahepatic biliary ductal dilation. Spleen is normal in size and shows no focal suspicious findings. Gallbladder size is normal. No gallstones, wall thickening, or pericholecystic fluid. Common bile rosangela t measures 3 mm, normal, with no common duct stone identified. No hydronephrosis or suspicious mass in either kidney although evaluation somewhat limited by poor pe netration. Normal-sized kidneys. No echogenic calculi. No ascites or bulky lymphadenopathy. IMPRESSION: Normal abdominal ultrasound.
--- NOTE | 2023-11-19 20:38 | RAD REPORT ---
EXAM DESCRIPTION: US - Extrem Venous W Compress [place]ble - 11/19/2023 3:43 pm CLINICAL HISTORY: SOB COMPARISON: None. TECHNIQUE: Real-time sonographic evaluation of the bilateral lower extremity deep venous systems was performed. FINDINGS: Normal compressibility, flow augmentation, phasic flow and spontaneous flow is identified in both the left and right lower extremity deep venous systems. No intraluminal filling defects seen. IMPRESSION: No DVT in either lower extremity.
--- NOTE | 2023-11-19 23:23 | PN ---
Date of Progress Note: 11/19/2023 Chief Complaint: Acute kidney injury. Subjective: The patient has hyponatremia. On presentation to the hospital, she was found to have hypokalemia. Potassium was 3.0, chloride 69, sodium 109. The patient has history of breast cancer. Recently, she underwent chemotherapy. She received 4 cycles of chemotherapy on October 28, 2023. She presented to emergency room because she was having watery diarrhea for at least several weeks' and was complaining of abdominal bloating, anorexia and decreased oral intake. She denied dysuria, hematuria, and urine output has declined. Patient remains oliguric and anuric. Despite IV fluids and IV albumin, her urine output has not improved. The patient is on treatment with 3% of sodium chloride for severe hyponatremia. The patient does not have symptoms of acute hyponatremia. She denies seizure or confusion. Denies headache or vision changes. 3% sodium chloride was started via the central line. The patient is tolerating infusion. Review of Systems: Denies chest pain, palpitation. Objective: Lungs: Clear to auscultation bilaterally. Heart: S1-S2. Abdomen: Soft. Benign. Extremities: Slight edema in both ankles. Impression And Plan: 1. Acute kidney injury secondary to renal hypoperfusion and acute tubular necrosis. The patient remains oliguric. Patient is borderline hypotensive and pressors were started today. Patient will need continuous veno-venous hemodialysis. I discussed regarding hemodialysis and continuous veno-venous hemodialysis will be an option at this point because of hypotension. Patient may need transfer to higher level of care for continuous veno-venous hemodialysis. 2. Hyponatremia remains severe, although patient is asymptomatic. Plan is to continue 3% of sodium chloride and monitor electrolytes and kidney function. 3. Patient on arrival to the hospital was found to have hypokalemia and received replacement. 4. The patient has hypoalbuminemia. Plan is to monitor ionized calcium and corrected calcium. 5. The patient has diarrhea and she is started for treatment of pancolitis. Senior Applications Architect is following. Patient is on protocol for presumptive C diff colitis. EB/MODL Voice ID: [id number] Report ID: [id number] MTDLauryn
[2023-11-20] MEDS ORDERED: METRONIDAZOLE 500mg IVPB 500 MG/100 ML BAG IV ONE (01:30)
[2023-11-20] MEDS: METRONIDAZOLE 500mg IVPB 500 MG/100 ML BAG IV SCH ×3 (01:31→17:00)
[2023-11-20 01:52] LABS: UR PROTEIN 203.2 mg/dL (<11.9); Urine Protein/Creatinine Ratio 0.95 ratio (<0.15)
[2023-11-20 02:01] LABS: Specific Gravity 1.019 (1.005-1.030); Urine Bacteria <20 /HPF (<20); Urine Bilirubin NEGATIVE (Negative); Urine Blood Negative (Negative); Urine Clarity Extremely Turbid (Clear); Urine Color Yellow (Yellow); Urine Glucose NEGATIVE (Negative); Urine Mucus Slight /HPF (None Seen); Urine Protein 1+ (Negative); Urine RBC <5 /HPF (None Seen); Urine Urobilinogen Normal (Normal)
[2023-11-20] MEDS: ALBUTEROL 2.5 MG/3 ML NEB SOL NEB SCH ×5 (02:05→19:48)
[2023-11-20] MEDS: IPRATROPIUM BROM 0.5MG/2.5ML NEB SCH ×4 (02:05→19:48)
[2023-11-20] MEDS: NOREPINEPHRINE BITARTRATE/D5W 4 MG/250 ML BAG IV SCH ×2 (02:07→07:15)
[2023-11-20 02:08] LABS: UR MICROALBUMIN 22.7 mg/dL (< 1.9)
[2023-11-20] MEDS: NA CHLORIDE 3% 500 ML IV SCH ×3 (02:18→22:30)
[2023-11-20 06:14] LABS: Absolute Lymphocytes (CBC) 0.3 K/uL (0.7-4.9); Hematocrit 26.4 % (36.0-45.0); Lymphocytes % 0.4 % (15.3-44.8); MCV 94.4 fL (80-100); MPV 7.9 fL (7.6-11.3); Platelets 265 thou/uL (152-406)
[2023-11-20 07:17] LABS: Potassium 3.9 mEq/L (3.5-5.1)
[2023-11-20 07:24] VITALS: BMI 35.4
[2023-11-20] MEDS ORDERED: ALBUTEROL 2.5 MG/3 ML NEB SOL ONE ×2 (07:58→13:41)
[2023-11-20] MEDS ORDERED: IPRATROPIUM BROM 0.5MG/2.5ML ONE ×2 (07:58→13:41)
[2023-11-20] MEDS: HEPARIN 5000 UNIT/ML 1 ML VIAL SQ SCH ×2 (08:54→21:00)
[2023-11-20] MEDS: MIDODRINE HCL 5 MG TABLET PO SCH ×3 (08:54→21:00)
[2023-11-20] MEDS: PANTOPRAZOLE 40 MG INJ IVP SCH ×2 (08:54→21:00)
[2023-11-20] MEDS: VANCOMYCIN HCL 125 MG CAPSULE PO SCH (09:00)
[2023-11-20 09:54] LABS: Blood Morphology Comment NOT SEEN (NOT SEEN); Platelet Estimate ADEQ; Toxic Granulation 3+
--- NOTE | 2023-11-20 09:59 | RAD REPORT ---
EXAM DESCRIPTION: NM - Vent Perfusion VQ Scan - 11/20/2023 8:40 am CLINICAL HISTORY: Rule out PE COMPARISON: Abdomen 1 View (KUB) dated 11/19/2023; Chest Single View dated 11/19/2023 TECHNIQUE: Planar perfusion scan was performed in multiple projections administration of 6.9 millicu delisa Tc-MAA IV. Examination is correlated with recent chest radiograph. FINDINGS: No segmental or wedge shaped perfusion defect. IMPRESSION: Scintigraphic lung perfusion study demonstrating no evidence of pulmonary embolism by PI SAPED criteria.
--- NOTE | 2023-11-20 10:50 | P.PN ---
Subjective Date of Service: 11/20/23 Chief Complaint: Acute renal failure Pt is resting comfortably in the ICU bed. Na is 117<- 113. She is getting 3% NS. She denies any chest pain but reports SOB. Pt is using 2L BNC. NG tube is in place. She is making urine and her Cr is coming down. Nephrology is following. No other complaints. Review of Systems Unremarkable General: Unremarkable Eyes: Unremarkable ENT: Unremarkable Respiratory: Unremarkable Cardiovascular: Unremarkable Gastrointestinal: Abdominal Pain Genitourinary: Unremarkable Musculoskeletal: Unremarkable Integumentary: Unremarkable Neurological: Unremarkable Lymphatics: Unremarkable Physical Examination - Vital Signs Temperature: 98.2 F Blood Pressure: 99/58 Pulse: 114 Respirations: 20 Pulse Ox (%): 98 - Physical Exam General: Alert, In no apparent distress, Oriented x3 HEENT: Atraumatic, Normocephalic, PERRLA Neck: Supple, 2+ carotid pulse no bruit Respiratory: Clear to auscultation bilaterally, Normal air movement Cardiovascular: No edema, Normal pulses, Regular rate/rhythm, Normal S1 S2 Capillary refill: <2 Seconds Gastrointestinal: Normal bowel sounds, Soft and benign, Non-distended Musculoskeletal: No clubbing, No swelling Integumentary: No rashes, No breakdown Neurological: Normal speech, Normal strength at 5/5 x4 extr, Normal tone Lymphatics: No axilla or inguinal lymphadenopathy Assessment And Plan - Plan Acute renal failure: Cr is 6.6<- 6.74. Will continue IVF, avoid nephrotoxins and monitor renal function. Nephrology is following. Hyponatremia: Na is 117<- 113 <- 111. Will continue 3% NS and trend Na level. Hypotension: Will continue IVF, midodrine and albumin. BP is 102/88. Maintain MAP > 65. Low threshold to start levophed. Pancolitis: per imaging study. It is concerning for C diff. No diarrhea since yesterday. Will continue po vanc and flagyl 500mg iv TID. Electrolyte abnormalities: Will monitor and replete electrolytes. Hypocalcemia: Calcium is 7.1. Will check vitamin D, ionized calcium and mag. Hx of breast cancer: Pt recently completed her chemotherapy ( Neulasta). She is immunocompromised. Will monitor WBC. Leukocytosis: Unknown etiology. Diarrhe a has resolved. We did not collect stool sample to r/o C diff. WBC is 61.4 <- 51 <- 56 <- 48. Anemia: Hgb is 9.1. Will monitor. Gastric distention: Status post NG tube placement; GI consulted. Monitor for gastric outlet obstruction. Continue with PPI. DVT ppx: lovenox Dispo: Pending hospital course
[2023-11-20] MEDS: NOREPINEPHRINE 8 MG in D5W 250 ML IV SCH ×2 (11:53→19:57)
[2023-11-20] MEDS ORDERED: LIDOCAINE 1% 20 ML MDV ONE (11:53)
[2023-11-20] MEDS: CEFEPIME 1 GM in NA CHLORIDE 0.9% 50 ML IV SCH (12:00)
--- NOTE | 2023-11-20 12:14 | RAD REPORT ---
EXAM DESCRIPTION: RAD - Abdomen 1 View (KUB) - 11/20/2023 12:04 pm CLINICAL HISTORY: NGT placement COMPARISON: Abdomen 1 View (KUB) dated 11/19/2023; Abdomen 1 View (KUB) dated 11/18/2023; Abdomen 1 Vi ew (KUB) dated 11/18/2023 TECHNIQUE: Single AP view of the abdomen. FINDINGS: Despite readjustment, unchanged appearance of the enteric tube with cortical distal aspect . Decreased inspiratory effort. Nonobstructive bowel gas pattern. No air-fluid levels, free air, or p neumatosis. No suspicious calcifications. No significant bony abnormality. IMPRESSION: Unchanged configuration of the enteric tube.
[2023-11-20] MEDS ORDERED: NA CHLORIDE 0.9% 1,000 ML IV ONE (12:30)
[2023-11-20] MEDS: VANCOMYCIN ORAL SOLN 250 MG/5 ML OSYR PO SCH ×3 (13:00→21:00)
--- NOTE | 2023-11-20 13:20 | PN ---
Date of Progress Note: 11/20/2023 Subjective: The patient was admitted to the hospital with the septic shock. The patient known to have cancer. The patient being on treatment. The patient had acute kidney injury with hyponatremia. Patient received 4 cycles of chemotherapy. Last cycle was on October the . The patient being on Levophed for her shock. Blood pressure maintained on the 100 to 120. The patient had low urine output around 20 per hour. Objective: Vital Signs: When I saw the patient, blood pressure 125/60, pulse of 110, afebrile. Chest: Crackles, bilateral. Heart: S1, S2. Systolic murmur. Tachy. Abdomen: Soft, distended. Extremities: Plus edema. Neurologic: Alert. No focality. No tremor. Laboratory Data: WBC 61.4, hemoglobin 9.1, sodium 115, potassium 3.9, bicarb 16, BUN 83, creatinine 6.2, GFR of 8, calcium 7.2. Cortisol 63. TSH 0.7. Urinalysis negative for hematuria. WBC of 20. Urine PC ratio 103. Urine sodium less than 15. Current Medications: The patient on Levophed, cefepime, metronidazole and vancomycin, breathing treatment, pantoprazole. Assessment And Plan: 1. Acute kidney injury secondary to poor perfusion ATN, toxic ATN superimposed with possible GI loss secondary to the diarrhea. Patient's kidney function continued to decline. Patient oliguric. Obstructive uropathy has been ruled out. I had long discussion with the patient in the presence of the sister about the need to initiate renal replacement therapy to correct the electrolyte imbalance and the acute kidney injury. Explained risks, benefits, alternatives. The patient and family on agreement. I am going to go ahead and consult Surgery for placement of temporary hemodialysis catheter and we will monitor the patient. In the meantime, I am going to continue on IV fluid. We are not going to challenge the patient with any ultrafiltration. The patient is going to be dialyzed on low flow to avoid any complication on malfunction of fast correction of her sodium. 2. Acidosis. High anion gap metabolic acidosis with non-anion gap metabolic acidosis secondary to GI loss and secondary to poor perfusion and renal failure. No need for bicarb currently as the patient is going to receive dialysis, will be corrected. 3. Hyponatremia, depletional, secondary to GI loss. The patient received 3%. I am going to start dialysis session. We will dialyze on low sodium bath to avoid fast correction. In the meantime, I will bolus the patient with 1 L of normal saline and we will follow up. Repeat urine electrolyte. We will send for uric acid. 4. Cancer, status post chemo, follow up with the Primary. 5. Shortness of breath. Possible pneumonia, as by Pulmonary. 6. Septic shock. Continue supportive treatment. Continue antibiotic. Time spent examining the patient [id number] reviewing that the lab and the radiology placing orders or discussing the case with the patient discussing the case with the steaming machine operator including hospitalist and nursing staff more than 35 minutes AMANDA Voice ID: [id number] Report ID: [id number] ANGELES
[2023-11-20] MEDS ORDERED: VANCOMYCIN 1.5 GM in NA CHLORIDE 0.9% 500 ML IVPB SCH (14:00)
[2023-11-20 14:50] LABS: Absolute Lymphocytes (CBC) 0.3 K/uL (0.7-4.9); Hematocrit 28.7 % (36.0-45.0); Lymphocytes % 0.4 % (15.3-44.8); MCV 95.2 fL (80-100); Platelets 243 thou/uL (152-406); RBC Red Blood Cell Count 3.02 M/uL (3.86-4.86)
[2023-11-20 15:26] LABS: Magnesium 2.4 mg/dL (1.6-2.4); Phosphorus 8.3 mg/dL (2.5-4.9); Potassium 4.2 mEq/L (3.5-5.1)
--- NOTE | 2023-11-20 15:41 | CON ---
Date of Consultation: 11/20/2023 Diagnosis: Renal failure. History Of Present Illness: This is a case of a 53-year-old patient, current chemotherapy treatment for breast cancer, status post lumpectomy and axillary dissection in April of last year. Patient was admitted to this hospital several days ago with multiple medical problems including colitis, sepsis, balloon deflation, electrolyte disturbance, and for the last 48 hours, they had been following the pa tient for sudden deterioration of the kidneys and then they are right now evaluating the patient for possible hemodialysis access and a surgical consult was obtained for a placement. Past Medical History: Include breast cancer, status post chemotherapy finished about 3 months ago. Past Surgical History: Includes total abdominal hysterectomy, right breast lumpectomy with lymph nod e dissection. Social History: She does not smoke. She does not drink alcohol. Family History: Noncontributory. Review of Systems: The patient denies any chest pain, any shortness of breath today. Denies any abdominal pain today. Review of Systems: Ten points otherwise unremarkable. Physical Examination: General: The patient is awake and alert. HEENT: Pupils are equal and reactive. Neck: Supple. Chest: Clear. There is a Port-A-Cath on the left side. Abdomen: Soft and depressible. No guarding or rebound. Extremities: There is a postmastectomy gar ment on the right arm. Good peripheral pulses. Laboratory Data: Blood work shows a WBC count of 61.4, hemoglobin of 9.1, and platelets of 265. INR is 1.21. Sodium is 115, chloride is 84, creatinine is 6.25. Assessment: A 53-year-old patient with renal failure. They asked me to put a hemodialysis catheter. The benefits, alternatives, and risks of placement of hemodialysis catheter were fully explained to the patient which include, but not limited to, infection, bleeding, damage to adjacent structures, a nesthesia complication, hemothorax, pneumothorax, sepsis, endocarditis, DVTs, PE, OR, even . Sh e also understands this may not relieve any symptoms, she might need more than one surgical intervent ion. She understands the importance of when it is not in use anymore, the same is for opposite Port- A-Cath, to be removed as soon as possible. Once the Renal doctor decide which way to go in the futur e to eliminate dialysis or going to permanent because she will require then arm access. Still Medica l doctor is working on the medical issues, trying to correct electrolytes. I already informed the An esthesia department about the possible need of anesthesia and they are going to evaluate her case. KAROLINA/LINH Voice ID: [id number] Report ID: [id number]
[2023-11-20] MEDS: FENTANYL CITR 100 MCG/2 ML IV PRN ×2 (15:43→21:00)
[2023-11-20 18:26] LABS: Blood Morphology Comment NOTED (NOT SEEN); Platelet Estimate ADEQ; Toxic Granulation 2+
--- NOTE | 2023-11-20 19:57 | RAD REPORT ---
EXAM DESCRIPTION: RAD - Chest Single View - 11/20/2023 7:42 pm CLINICAL HISTORY: shortness of breath Chest pain. COMPARISON: Abdomen 1 View (KUB) dated 11/20/2023; Abdomen 1 View (KUB) dated 11/19/2023; Chest Single View dated 11/19/2023; Abdomen 1 View (KUB) dated 11/18/2023 FINDINGS: Portable technique limits examination quality. The lungs are underinflated. Left-sided port catheter has tip in the SVC. The heart is normal in size . Enteric tube coiled in the stomach.Several dilated bowel loops in the left abdomen superiorly.
[2023-11-21] MEDS: METRONIDAZOLE 500mg IVPB 500 MG/100 ML BAG IV SCH ×3 (00:34→17:20)
[2023-11-21] MEDS: NOREPINEPHRINE 8 MG in D5W 250 ML IV SCH ×3 (00:38→16:33)
[2023-11-21] MEDS: IPRATROPIUM BROM 0.5MG/2.5ML NEB SCH ×4 (01:00→20:25)
[2023-11-21] MEDS: ALBUTEROL 2.5 MG/3 ML NEB SOL NEB SCH ×4 (01:00→20:25)
[2023-11-21] MEDS ORDERED: METOPROLOL TARTRATE 5 MG/5 ML INJ IV STA (03:00)
[2023-11-21] MEDS ORDERED: AMIODARONE HCL 150 MG in D5W 100 ML IV STA (03:05)
[2023-11-21] MEDS ORDERED: METOPROLOL TARTRATE 5 MG/5 ML INJ IV ONE (03:06)
[2023-11-21] MEDS ORDERED: NA CHLORIDE 0.9% 100 ML ONE ×2 (03:15→09:29)
[2023-11-21] MEDS ORDERED: NOREPINEPHRINE BITARTRATE/D5W 4 MG/250 ML BAG IV ONE ×2 (03:43→06:43)
[2023-11-21] MEDS ORDERED: NOREPINEPHRINE 4 MG in D5W 250 ML IV SCH (03:45)
[2023-11-21] MEDS ORDERED: AMIODARONE IN DEXTROSE,ISO-OSM 360 MG/200 ML BAG IV ONE (03:45)
[2023-11-21] MEDS: NOREPINEPHRINE BITARTRATE/D5W 4 MG/250 ML BAG IV SCH (03:50)
[2023-11-21] MEDS ORDERED: AMIODARONE HCL 450 MG in D5W 241 ML IV SCH ×2 (04:00→10:00)
[2023-11-21] MEDS ORDERED: AMIODARONE IN DEXTROSE,ISO-OSM 360 MG/200 ML BAG IV SCH (04:00)
[2023-11-21 04:59] LABS: Absolute Lymphocytes (CBC) 0.4 K/uL (0.7-4.9); Hematocrit 30.1 % (36.0-45.0); Lymphocytes % 0.6 % (15.3-44.8); MCV 96.4 fL (80-100); MPV 8.3 fL (7.6-11.3); Platelets 272 thou/uL (152-406); RBC Red Blood Cell Count 3.12 M/uL (3.86-4.86)
[2023-11-21 05:12] LABS: UR SODIUM < 15 mmol/L (27-287)
[2023-11-21 05:13] LABS: 24H UR CREAT 1775 mg/24H (600-2000); Urine Total Volume 24 Hours 775 mL
[2023-11-21 05:50] LABS: Albumin 1.5 g/dL (3.4-5.0); Magnesium 2.5 mg/dL (1.6-2.4); Phosphorus 8.9 mg/dL (2.5-4.9); Potassium 4.6 mEq/L (3.5-5.1); Uric Acid 13.5 mg/dL (2.6-6.0)
[2023-11-21 06:35] LABS: C.diff Antigen/Toxin Ag pos : Tox pos (NEG : NEG)
[2023-11-21] MEDS ORDERED: ALBUTEROL 2.5 MG/3 ML NEB SOL ONE (07:40)
[2023-11-21] MEDS ORDERED: IPRATROPIUM BROM 0.5MG/2.5ML ONE (07:41)
[2023-11-21] MEDS ORDERED: AMIODARONE HCL 900 MG in Dextrose 5%-Water 482 ML IV SCH (08:00)
[2023-11-21] MEDS ORDERED: FENTANYL CITR 100 MCG/2 ML ONE ×3 (08:01→16:01)
[2023-11-21] MEDS: FENTANYL CITR 100 MCG/2 ML IV PRN ×2 (08:04→16:11)
[2023-11-21] MEDS: NA CHLORIDE 3% 500 ML IV SCH (08:30)
[2023-11-21] MEDS ORDERED: NA CHLORIDE 0.9% 500 ML ONE ×2 (08:58→12:37)
[2023-11-21] MEDS: PANTOPRAZOLE 40 MG INJ IVP SCH (09:00)
[2023-11-21] MEDS: HEPARIN 5000 UNIT/ML 1 ML VIAL SQ SCH (09:00)
[2023-11-21] MEDS: MIDODRINE HCL 5 MG TABLET PO SCH ×2 (09:00→14:42)
[2023-11-21] MEDS ORDERED: CEFTRIAXONE 1,000 MG in NA CHLORIDE 0.9% 50 ML IVPB SCH (09:00)
[2023-11-21] MEDS: VANCOMYCIN ORAL SOLN 250 MG/5 ML OSYR PO SCH ×4 (09:00→17:00)
[2023-11-21] MEDS ORDERED: METRONIDAZOLE 500mg IVPB 500 MG/100 ML BAG IV ONE ×2 (09:06→17:17)
--- NOTE | 2023-11-21 09:19 | P.CNS ---
Date of Consult: 11/21/23 Reason for Consult: c.diff Requesting Physician: Antonio Marques Chief Complaint: Acute renal failure History of Present Illness: Patient is a 53 year old female with a medical history of hypertension and breast cancer on chemotherapy. She presented to the ED on 11/17 with complaints of watery diarrhea, nausea, anorexia and generalized weakness. ED workup significant for acute kidney injury (cr 8.62), leukocytosis (WBC 48.3), Hy ponatremia (Na 109); hypotension (BP 72/54). CT abdomen pelvis revealing moderate pancolitis. C.diff positive. GI was consulted. WBC continues to trend up, patient was started on empiric Cefepime, infectious disease was consulted. Allergies No Known Allergies Allergy (Unverified 11/17/23 19:29) Home medications list reviewed: Yes Home Medications: Bupropion *Xl* [Wellbutrin XL] 300 mg PO DAILY 11/17/23 Cetirizine HCl [Zyrtec] 10 mg PO DAILY 11/17/23 Fluticasone Propionate 50 mcg IH DAILY 11/17/23 Linaclotide [Linzess] 72 mcg PO DAILY 11/17/23 Lisinopril/Hydrochlorothiazide [Lisinopril-Hctz 20-25 mg Tab] 1 each PO DAILY 11/17/23 Lorata/Pseudoeph 12Hr [Claritin-D 12 Hour] 1 tab PO PRN PRN 11/17/23 Olopatadine 665 Mcg Nasal Spra 1 spray NS DAILY 11/17/23 Valacyclovir HCl [Valacyclovir] 1,000 mg PO PRN PRN 11/17/23 - Past Medical/Surgical History Diabetic: No -: Breast cancer -: rt breast sx - Social History Alcohol use: No CD- Drugs: No Caffeine use: No Place of Residence: Home Review of Systems General: Weakness Respiratory: Shortness of Breath Gastrointestinal: Abdominal Pain, Diarrhea Physical Examination Temp Pulse Resp BP Pulse Ox 98.8 F 93 H 28 H 85/61 L 99 11/21/23 04:00 11/21/23 06:45 11/21/23 08:04 11/21/23 06:45 11/21/23 08:04 Laboratory Data - Reviewed Microbiology Data - Reviewed Imagings Data: - VQ Lung Scan 11/20: no evidence of pulmonary embolism - Abdominal ultrasound 11/19: "Normal abdominal ultrasound." - CT abdomen pelvis 11/17: "The evaluation of solid organs, vessels and bowel is limited secondary to the lack of contrast administration. The liver, spleen, pancreas, adrenals and kidneys appear grossly normal. Moderate wall thickening involves the entire colon and rectum. Pneumatosis intestinalis is not seen. Small amount of ascites. Small right pleural effusion with mild right lower lobe atelectasis. Small umbilical hernia. IMPRESSION: Moderate pancolitis" - KUB XR 11/20: "Despite readjustment, unchanged appearance of the enteric tube with cortical distal aspect. Decreased inspiratory effort. Nonobstructive bowel gas pattern. No air-fluid levels, free air, or pneumatosis. No suspicious calcifications. " - XR chest 11/20: "The lungs are underinflated. Left-sided port catheter has tip in the SVC. The heart is normal in size. Enteric tube coiled in the stomach. Several dilated bowel loops in the left abdomen superiorly." Conclusions/Impression: Problem List Fulminant C.difficile infection Pancolitis Acute Kidney Injury Anemia Hyponatremia Breast Cancer, on chemotherapy Fulminant C.difficile infection Pancolitis - CT abdomen pelvis 11/17: "Moderate pancolitis" - No known history of inflammatory bowel disease - C.diff toxin and antigen positive - Currently on Vancomycin PO (started 11/18) - Stool culture 11/21: pending - GI also following high risk for toxic megacolon. Monitor patient closely. WBC trending up afebrile Acute Kidney Injury - BUN 91, Cr 6.15 - Temporary hemodialysis catheter placement 11/21 - Nephrology following Recommendations - fulminant c.diff: Continue with high dose Vancomycin PO QID x 10 days. - Blood and urine cultures negative. Consider discontinuation of Cefepime. - Daily CBC with diff and BMP. Monitor WBC trends. - Continue supportive care - follow up with stool studies Case discussed with Herman Lopez
[2023-11-21] MEDS: CEFEPIME 1 GM in NA CHLORIDE 0.9% 50 ML IV SCH ×2 (09:24→10:13)
[2023-11-21] MEDS ORDERED: BUPIVACAINE 0.5% PF 10 ML VIAL ONE (09:28)
--- NOTE | 2023-11-21 09:55 | P.PN ---
Subjective Date of Service: 11/22/23 Chief Complaint: Acute renal failure Pt is resting comfortably in the ICU bed. Na is 122 <- 117<- 113. She is getting 3% NS. She denies any chest pain but reports SOB. Pt is using 2L BNC. NG tube is in place. She is making urine and her Cr is slowly improving. C diff is positive. Continue po vanc. Nephrology is following. No other complaints. Review of Systems Unremarkable General: Weakness Eyes: Unremarkable ENT: Unremarkable Respiratory: Shortness of Breath Cardiovascular: Unremarkable Gastrointestinal: Unremarkable Genitourinary: Unremarkable Musculoskeletal: Unremarkable Integumentary: Unremarkable Neurological: Unremarkable Lymphatics: Unremarkable Physical Examination - Vital Signs Temperature: 98.8 F Blood Pressure: 105/54 Pulse: 94 Respirations: 21 Pulse Ox (%): 99 - Physical Exam General: Alert, In no apparent distress, Oriented x3 HEENT: Atraumatic, Normocephalic Neck: Supple, 2+ carotid pulse no bruit Respiratory: Clear to auscultation bilaterally, Normal air movement Cardiovascular: No edema, Normal pulses, Regular rate/rhythm, Normal S1 S2 Capillary refill: <2 Seconds Gastrointestinal: Normal bowel sounds, Soft and benign, Non-distended Musculoskeletal: No clubbing, No swelling Integumentary: No rashes, No breakdown Neurological: Normal speech, Normal strength at 5/5 x4 extr, Normal tone, Sensation intact, Cranial nerves 3-12 intact Lymphatics: No axilla or inguinal lymphadenopathy Assessment And Plan - Plan Acute renal failure: Cr is 6.19<- 6.6<- 6.74. Will continue IVF, avoid nephrotoxins and monitor renal function. Nephrology is following. Gen surgery placed a dialysis catheter. Will need CRRT due to hypotension. Hyponatremia: Na is 122 <- 117<- 113 <- 111. Will continue 3% NS and trend Na level. Hypotension: Will continue levophed, IVF, midodrine and albumin. Maintain MAP > 65. Pancolitis: per imaging study. C diff is positive. Will continue po vanc and flagyl 500mg iv TID. Consulted ID. WBC is 69.7. Electrolyte abnormalities: Will monitor and replete electrolytes. Hypocalcemia: Calcium is 7.1. Will check vitamin D, ionized calcium and mag. Hx of breast cancer: Pt recently completed her chemotherapy (Neulasta). She is immunocompromised. Will monitor WBC. Leukocytosis: Unknown etiology. Diarrhea has resolved. C diff is positive. WBC is 69.7 <- 61.4 <- 51 <- 56 <- 48. Anemia: Hgb is 10.1. Will monitor. Gastric distention: Status post NG tube placement; GI consulted. Monitor for gastric outlet obstruction. Continue with PPI. DVT ppx: lovenox Dispo: Pending hospital course. Will transfer pt to another facility for CRRT.
[2023-11-21] MEDS ORDERED: NS 0.9% VIAL 20 ML ONE (10:42)
[2023-11-21] MEDS ORDERED: LIDOCAINE 2% MPF 5 ML VIAL ONE (10:42)
[2023-11-21] MEDS ORDERED: ONDANSETRON 4 MG/2 ML VIAL ONE (10:42)
[2023-11-21] MEDS ORDERED: propofoL 200 MG/20 ML VIAL IV ONE (10:43)
[2023-11-21] MEDS ORDERED: NA CHLORIDE 0.9% 1,000 ML IV ONE (10:48)
[2023-11-21] MEDS ORDERED: DEXMEDETOMIDINE HCL 200 MCG/2 ML VIAL ONE (10:51)
[2023-11-21] MEDS ORDERED: SUCCINYLCHOLINE 20 MG/ML (10 ML) IV ONE (10:51)
[2023-11-21] MEDS ORDERED: CALCITROL 0.25 MCG CAP PO SCH (11:00)
--- NOTE | 2023-11-21 11:48 | PN ---
Date of Progress Note: 11/21/2023 Subjective: Patient was admitted to the hospital with acute kidney injury, septic shock. The patient is oliguric, had acidosis and hyponatremia. Yesterday, we had continued on fluid resuscitation. Her sodium has been improved up to 122, but acidosis persists and patient is still pressor dependent. Physical Examination: Vital Signs: When I saw the patient, blood pressure 95/50, pulse of 90, afebrile. Patient had 30 mL of urine output. Chest: Clear to auscultation. Heart: S1, S2. Systolic murmur. Abdomen: Distended. Extremities: Plus edema. Neuro: Alert. No focality. Laboratory Data: Sodium 122, potassium 4.6, bicarb 16, BUN 91, creatinine 6.1. GFR of 8. Uric acid 13.5. Calcium 7.2. Phosphorus 8.9, magnesium 2.5. Albumin 1.5. PTH 617. TSH is 0.7. Cortisol 63. PC ratio is 103. Current Medications: Patient is on Levophed, metronidazole 500 q.8, cefepime, vancomycin, midodrine, amiodarone, metoprolol p.r.n., simethicone, pantoprazole. Assessment And Plan: 1. Acute kidney injury secondary to poor perfusion acute tubular necrosis, toxic acute tubular necrosis, oliguric, normal volume. Patient is planned for temporary hemodialysis catheter today. We will try to place the patient on SLED. If we fail, patient will need CRRT. I had a long discussion with the patient and by bedside explaining risks, benefits, alternatives. Verbalized understanding. Discussed the case with the surgeon. 2. Acidosis, high anion gap, metabolic acidosis with contraction alkalosis. I am going to go ahead and give the patient another liter of normal saline and continue to monitor. Acidosis is going to be corrected with dialysis. I do not see the need for bicarb supplement. 3. Hyponatremia, depletional, secondary to gastrointestinal loss and renal failure, trending up, appropriate rise. We will give another bolus of normal saline and we will follow up. Patient is going to be dialyzed on low sodium bath to avoid over correction and we will follow up. 4. Septic shock secondary to Clostridium difficile. Patient is on antibiotic. We will follow up with primary. 5. Secondary hyperparathyroidism with hypocalcemia. Start the patient on calcitriol. 6. Malnourished with the presence of Clostridium difficile. We will continue the patient on n.p.o. Consider TPN. We will follow up with primary. 7. Tumor with metastasis, septic shock. Continue supportive care. Patient overall has poor prognosis. Time spent examining the patient [id number] reviewing that the lab and the radiology placing orders or discussing the case with the patient discussing the case with the hat steamer including hospitalist and nursing staff more than 35 minutes AMANDA Voice ID: [id number] Report ID: [id number] MTDD
[2023-11-21] MEDS: HEPARIN 5000 UNIT/ML 1 ML VIAL ONE ×2 (12:00→12:03)
--- NOTE | 2023-11-21 12:34 | RAD REPORT ---
EXAM DESCRIPTION: RAD - Fluoroscopy <1 Hour - 11/21/2023 12:21 pm CLINICAL HISTORY: HD CATH COMPARISON: Vent Perfusion VQ Scan dated 11/20/2023 FINDINGS/IMPRESSION: Six fluoroscopic images submitted demonstrating placement of a right IJ approac h dialysis catheter. No radiologist was available for the procedure, nor will any image interpretation be provided. Adela dennis refer to the procedural report for additional details Fluoro time: 0.6 minutes Cumulative dose: 10.7 mGy
[2023-11-21] MEDS ORDERED: LIDOCAINE 1% MPF 2 ML AMPULE ONE (12:37)
--- NOTE | 2023-11-21 12:43 | P.BOP ---
Preoperative diagnosis: REnal failure Postoperative diagnosis: same Primary procedure: 1. Placement of tunneled hemodialysis Secondary procedure: 2. Interpretation of fluoroscopy Other procedure(s): 3. Right neck ultrasound Estimated blood loss: <10cc Specimen: none Findings: as above Anesthesia: General Implants: hemosplit HD cath Transferred to: Recovery Room Condition: Good
--- NOTE | 2023-11-21 13:16 | RAD REPORT ---
EXAM DESCRIPTION: Benitez Single View11/21/2023 1:08 pm CLINICAL HISTORY: Device placement/central venous catheter placement IMPRESSION: Central venous catheter with its tip in the right atrium No pneumothorax
[2023-11-21] MEDS ORDERED: HYDROCODONE/APAP 5/325 MG TAB PO PRN (14:35)
[2023-11-21] MEDS ORDERED: HYDROCODONE/APAP 5/325 MG TAB ONE (14:37)
[2023-11-21] MEDS ORDERED: MIDODRINE HCL 5 MG TABLET ONE (14:38)
[2023-11-21] MEDS ORDERED: DEXMEDETOMIDINE HCL 200 MCG in NA CHLORIDE 0.9% 98 ML IV SCH (16:00)
[2023-11-21 16:18] LABS: Specific Gravity 1.021 (1.005-1.030); Urine Bacteria <20 /HPF (<20); Urine Bilirubin NEGATIVE (Negative); Urine Blood 2+ (Negative); Urine Clarity Extremely Turbid (Clear); Urine Color Dark-Yellow (Yellow); Urine Glucose TRACE (Negative); Urine Mucus Slight /HPF (None Seen); Urine Protein 2+ (Negative); Urine RBC >50 /HPF (None Seen); Urine Urobilinogen Normal (Normal)
[2023-11-21 16:34] LABS: UR SODIUM < 15 mmol/L (27-287)
[2023-11-21] MEDS ORDERED: NOREPINEPHRINE 16 MG in D5W 250 ML IV SCH (19:00)
[2023-11-21] MEDS ORDERED: ALBUMIN HUMAN 25% 100 ML IV ONE (19:00)
[2023-11-21 20:24] LABS: Potassium 4.9 mEq/L (3.5-5.1)
[2023-11-21 20:26] LABS: Magnesium 2.6
[2023-11-21] MEDS ORDERED: ENSURE HIGH PROTEIN 237 ML CAN PO SCH (21:00)
[2023-11-21 21:05] LABS: Phosphorus 10.2 mg/dL (2.5-4.9)
[2023-11-21 21:36] VITALS: O2SAT 97
[2023-11-22] MEDS ORDERED: DEXMEDETOMIDINE HCL 1,000 MCG in NA CHLORIDE 0.9% 490 ML IV SCH (03:00)
[2023-11-22] MEDS ORDERED: LACTOBACILLUS/ACIDOPHILUS TAB PO SCH (09:00)
--- NOTE | 2023-11-22 13:22 | EKG ---
Test Date: 2023-11-21 Test Time: 18:31:50 Tool Trouble Shooter: MEASUREMENT RESULTS: Intervals: Rate: 86 NC: 136 QRSD: 108 QT: 378 QTc: 452 [place]: P: 28 NC: 136 QRS: -13 T: 8 INTERPRETIVE STATEMENTS: Sinus rhythm with marked sinus arrhythmia with premature ventricular complexes or fusion complexes Otherwise normal ECG Compared to ECG 11/21/2023 02:53:26 Fusion complex(es) now present Atrial fibrillation no longer present Myocardial infarct finding no longer present Electronically Signed On 11-22-23 13:21:32 TELEPHONE COLLECTOR by Ritesh Flood
--- NOTE | 2023-11-22 13:27 | EKG ---
Test Date: 2023-11-21 Test Time: 02:53:26 Spindle Setter: MEASUREMENT RESULTS: Intervals: Rate: 186 OR: QRSD: 84 QT: 224 QTc: 394 [place]: P: OR: QRS: 45 T: 168 INTERPRETIVE STATEMENTS: Atrial fibrillation with rapid ventricular response with premature ventricular or aberrantly conducted complexes Possible Anterolateral infarct, age undetermined Abnormal ECG Compared to ECG 11/20/2023 13:20:04 Ventricular premature complex(es) now present Myocardial infarct finding now present Electronically Signed On 11-22-23 13:22:53 PERSONAL SECURITY SPECIALIST by Ritesh Flood
--- NOTE | 2023-11-22 13:30 | EKG ---
Test Date: 2023-11-20 Test Time: 13:20:04 Pole Peeling Machine Operator: FRAN MEASUREMENT RESULTS: Intervals: Rate: 120 [place]: QRSD: 88 QT: 296 QTc: 418 [place]: P: MN: QRS: 2 T: 34 INTERPRETIVE STATEMENTS: Atrial fibrillation Abnormal ECG Compared to ECG 11/17/2023 17:14:34 Sinus rhythm no longer present T-wave abnormality no longer present Possible ischemia no longer present Prolonged QT interval no longer present Electronically Signed On 11-22-23 13:23:43 ROOMS DIRECTOR by Ritesh Flood
--- NOTE | 2023-11-22 13:46 | EKG ---
Test Date: 2023-11-17 Test Time: 17:14:34 Managed Care Liaison: ALP MEASUREMENT RESULTS: Intervals: Rate: 96 MS: 140 QRSD: 94 QT: 428 QTc: 540 [place]: P: 59 MS: 140 QRS: 33 T: 222 INTERPRETIVE STATEMENTS: Normal sinus rhythm T wave abnormality, consider inferior ischemia Prolonged QT Abnormal ECG No previous ECG available for comparison Electronically Signed On 11-22-23 13:28:03 LABORER PIPELINE by Ritesh Flood
[2023-11-22 15:58] VITALS: BP 105/54; TEMP 98.8
--- NOTE | 2023-11-23 17:20 | P.DS ---
Admission Date: 11/17/23 Discharge Date: 11/23/23 Disposition: [facility] Discharge Condition: CRITICAL Reason for Admission: Acute renal failure Brief History of Present Illness: 53-year-old female with breast cancer on chemotherapy, completed her fourth cycle on 11/07/2023. She presented about 6 weeks of watery diarrhea. Associated symptoms include abdominal bloating, nausea, anorexia and decreased oral intake. Her bloating improves with burping. Her intake consist mostly of fluids and Jell-O. She denies any fever, vomiting, dysuria, hematuria rash, chest pain, shortness of breath and abdominal pain. She started Imodium yesterday and has diarrhea has improved however she remains very weak and with nausea and decreased urine output. Patient also takes lisinopril/hydrochlorothiazide daily, last dose today. She was given Neulasta shots on 11/09. She does not smoke or drink. In terms of her breast cancer, she had lumpectomy on May 2023 a month after her breast cancer diagnosis and patient is scheduled for follow-up PET/CT next week and then subsequent lumpectomy on December 07. When she arrived to the ED initial BP was 72/54, HR 110. Her labs showed Na 109, K+ 3, chloride 69, bicarb 17, anion gap 26, BUN/Cr 63/8.[address] abdomen and pelvis revealed moderate wall thickening of the entire colon and rectum consistent with moderate pancolitis. Patient initially started normal saline bolus but later switched to 25 g albumin. Also received cefepime, 2g mg, 20 meq KCL and 10 mg of midodrine. Hospital Course: Pt is a 53 yo female with past medical history of breast cancer on chemotherapy, completed her fourth cycle on 11/07/2023 who presented with about 6 weeks of watery diarrhea. It was associated with abdominal bloating, nausea, anorexia and decreased oral intake. Her bloating improved with burping. She started Imodium the day before this admission which helped to improve the diarrhea but pt continued to feel very weak, nauseated and have decreased appetite. In addition pt continued to take lisinopril/hydrochlorothiazide daily for hypertension. On admission, lab studies showed Na 109, K+ 3, chloride 69, bicarb 17, anion gap 26, BUN/Cr 63/8.[address] abdomen and pelvis revealed moderate wall thickening of the entire colon and rectum consistent with moderate pancolitis. We admitted and treated pt for the medical problems listed below: Acute renal failure: Cr is 6.19<- 6.6<- 6.74. Will continue IVF, avoid nephrotoxins and monitor renal function. Nephrology is following. Gen surgery placed a dialysis catheter. Pt was transferred to another facility for CRRT due to hypotension. Hyponatremia: Na is 122 <- 117<- 113 <- 111 <- 109. Will continue 3% NS and trend Na level. Hypotension: Will continue levophed, IVF, midodrine and albumin. Maintain MAP > 65. Pancolitis: per imaging study. C diff is positive. Will continue po vanc. Off flagyl 500mg iv TID. Consulted ID. WBC is 69.7. Electrolyte abnormalities: Will monitor and replete electrolytes. Hypocalcemia: Calcium is 7.1. Will check vitamin D, ionized calcium and mag. Hx of breast cancer: Pt recently completed her chemotherapy (Neulasta). She is immunocompromised. Will monitor WBC. Leukocytosis: Unknown etiology. Diarrhea has resolved. C diff is positive. WBC is 69.7 <- 61.4 <- 51 <- 56 <- 48. Continue po vanc Anemia: Hgb is 10.1. Will monitor. Gastric distention: Status post NG tube placement; GI consulted. Monitor for gastric outlet obstruction. Continue with PPI. DVT ppx: lovenox Dispo: Transferred pt to another facility for CRRT. Pt was in critical condition so she was was transported by life flight. Vital Signs/Physical Exam: Temp Pulse Resp BP Pulse Ox 98.8 F 94 H 21 H 105/54 L 99 11/22/23 15:48 11/22/23 15:48 11/22/23 15:48 11/22/23 15:48 11/22/23 15:48 Laboratory Data at Discharge: WBC 69.70 thou/uL (4.3-10.9) H 11/21/23 04:32 Hgb 10.1 g/dL (12.0-15.0) L 11/21/23 04:32 Hct 30.1 % (36.0-45.0) L 11/21/23 04:32 Plt Count 272 thou/uL (152-406) 11/21/23 04:32 PT 13.2 SECONDS (9.5-12.5) H 11/17/23 16:47 INR 1.21 11/17/23 16:47 APTT 26.1 SECONDS (24.3-36.9) 11/17/23 16:47 Sodium 124 mEq/L (136-145) L 11/21/23 18:18 Potassium 4.9 mEq/L (3.5-5.1) 11/21/23 18:18 BUN 94 mg/dL (7-18) H 11/21/23 18:18 Creatinine 6.27 mg/dL (0.55-1.02) H 11/21/23 18:18 Glucose 236 mg/dL (74-106) H 11/21/23 18:18 Uric Acid 13.5 mg/dL (2.6-6.0) H 11/21/23 04:32 Phosphorus 10.2 mg/dL (2.5-4.9) H* 11/21/23 18:18 Magnesium 2.6 11/21/23 18:18 Total Bilirubin 1.1 mg/dL (0.2-1.0) H 11/19/23 14:11 AST 13 U/L (15-37) L 11/19/23 14:11 ALT 22 U/L (13-56) 11/19/23 14:11 Alkaline Phosphatase 97 U/L (45-117) 11/19/23 14:11 Lipase 13 U/L (13-75) 11/17/23 16:47 Home Medications: Bupropion *Xl* [Wellbutrin XL] 300 mg PO DAILY 11/17/23 Cetirizine HCl [Zyrtec] 10 mg PO DAILY 11/17/23 Fluticasone Propionate 50 mcg IH DAILY 11/17/23 Linaclotide [Linzess] 72 mcg PO DAILY 11/17/23 Lisinopril/Hydrochlorothiazide [Lisinopril-Hctz 20-25 mg Tab] 1 each PO DAILY 11/17/23 Lorata/Pseudoeph 12Hr [Claritin-D 12 Hour] 1 tab PO PRN PRN 11/17/23 Olopatadine 665 Mcg Nasal Spra 1 spray NS DAILY 11/17/23 Valacyclovir HCl [Valacyclovir] 1,000 mg PO PRN PRN 11/17/23 Followup: Guillermo Carbajal RN [Primary Care Provider] -
--- NOTE | 2023-11-23 20:47 | OP ---
Surgeon: Eliezer Roman MD Preoperative Diagnoses: Renal failure, breast cancer, history of chemotherapy, sepsis, colitis. Postoperative Diagnoses: Renal failure, breast cancer, history of chemotherapy, sepsis, colitis. Procedures: 1.Placement of a tunneled hemodialysis catheter. 2.Interpretation of fluoroscopy. 3.Right neck ultrasound. Estimated Blood Loss: Less than 10 cc. Anesthesia: General plus local. Implant: HemoSplit hemodialysis catheter. Indication: This is the case of a 53-year-old patient comes to us with multiple medical problems. I was consulted for the case of a hemodialysis catheter since the patient has developed renal failure and they want to give treatment. The benefits, alternatives, and risks were fully explained to the p atient and the patient's family, which include, but not limited to infection, bleeding, damage to adj acent structures, anesthesia complication, hemothorax, pneumothorax, bleeding, PE, [place], and even . They also understood this may not relieve any symptoms. She might need more than one surgical int ervention. She understands that dialysis treatment will be given by the renal service. They signed a consent. Description Of Procedure: Patient was brought to the operating room, placed in supine position. Ane sthesia was done without complication. Right neck and chest were prepped and draped in a sterile fas hion. Patient has a Port-A-Cath that is in use at this moment on the left side, so we are trying to use the right jugular vein as an access that we have available at this moment. So with the patient i n Trendelenburg position, we prepped and draped the right neck and chest in the usual sterile fashion . Local anesthesia was applied. We used the right neck ultrasound to localize the area of the right jugular vein to make sure that is compressible and viable. Using that guidance, we placed an 18-gau ge needle in the right internal jugular vein at the first attempt. Guidewire passed through and the needle was removed. We proceeded to make a small incision in the right upper chest and tunneled the catheter from there into an incision made where the wire was inserted. We tunneled the catheter thro ugh that area. Using fluoroscopy, I proceeded to once again guide the wire in the proper fashion int o the superior vena cava and then used serial dilators and finally introducer catheter. Catheter was placed through the introducer and then the introducer was peeled off. Excellent backflow and inflow . The line was flushed with heparinized solution. The patient was brought back from Trendelenburg p osition to normal position and the subcutaneous tissue was closed with 3-0 chromic and the catheter w as secured to the skin with 3-0 nylon. The area was covered with sterile dressings. No bleeding. S ponge count and instrument counts were correct. Patient was sent to recovery in stable condition wit h a chest x-ray ordered stat. Patient will remain under the service of the primary doctors, alejo nds she is in critical condition. HM/MODL Voice ID: [id number] Report ID: [id number]
[2023-11-24 09:33] LABS: Albumin, (SPE) 1.8 g/dL (3.8-4.8); Alpha-1-Globulins 0.7 g/dL (0.2-0.3); Alpha-2-Globulins 0.9 g/dL (0.5-0.9); Gamma Globulins 0.3 g/dL (0.8-1.7); INTERPRETATION REPORT
== END 2023-11-21 21:05 | disposition short-term general hospital (02) | DRG 871 ==
LOC: ER 16:20 → ERHOLD 19:10 → UNDOADMIN 19:20 → 3RD-ICU 21:34
PROVIDERS: ADMIT Internal Medicine; ATTEND Hospitalist
PROC: 3E033XZ Introduction of Vasopressor into Peripheral Vein, Percutaneous Approach (ICD-10-PCS; 2023-11-17)
PROC: 0DH67UZ Insertion of Feeding Device into Stomach, Via Natural or Artificial Opening (ICD-10-PCS; 2023-11-20)
PROC: 02HV33Z Insertion of Infusion Device into Superior Vena Cava, Percutaneous Approach (ICD-10-PCS; 2023-11-21)
PROC: 5A1D70Z Performance of Urinary Filtration, Intermittent, Less than 6 Hours Per Day (ICD-10-PCS; 2023-11-21)
PROC: 0JH63XZ Insertion of Tunneled Vascular Access Device into Chest Subcutaneous Tissue and Fascia, Percutaneous Approach (ICD-10-PCS; principal; 2023-11-21 10:15)
DX: A41.9 Sepsis, unspecified organism (principal); N17.0 Acute kidney failure with tubular necrosis; R65.21 Severe sepsis with septic shock; A04.72 Enterocolitis due to Clostridium difficile, not specified as recurrent; E87.1 Hypo-osmolality and hyponatremia; E87.20 Acidosis, unspecified; E46 Unspecified protein-calorie malnutrition; E87.6 Hypokalemia; I95.9 Hypotension, unspecified; D64.9 Anemia, unspecified; E20.811 Secondary hypoparathyroidism in diseases classified elsewhere; E88.09 Other disorders of plasma-protein metabolism, not elsewhere classified; C50.919 Malignant neoplasm of unspecified site of unspecified female breast; K31.89 Other diseases of stomach and duodenum; R31.9 Hematuria, unspecified; Z99.2 Dependence on renal dialysis; Z68.33 Body mass index [BMI] 33.0-33.9, adult; Z91.158 Patient's noncompliance with renal dialysis for other reason; Z90.710 Acquired absence of both cervix and uterus; Z79.899 Other long term (current) drug therapy
CPT/HCPCS: 36415; 71045; 74018; 74176; 76000; 76700; 78582; 80048; 80053; 80069; 81001; 82010; 82043; 82533; 82550; 82570; 83605; 83690; 83735; 83880; 83930; 83935; 83970; 84100; 84132; 84133; 84156; 84165; 84295; 84300; 84443; 84484; 84550; 85025; 85379; 85610; 85730; 87040; 87045; 87046; 87086; 87088; 87324; 89055; 93005; 93970; 94640; A4216; A9540; C1752; C9113; J0282; J0692; J1644; J1720; J2001; J2405; J2704; J3010; J3475; J3480; J7030; J7040; J7050; J7060; J7131; J7613; J7644; P9047